=== PATIENT | female | born 1990 | race Two or more races ===

== ENCOUNTER 2018-04-05 20:58 | Emergency (ER) | payer MEDICAID ==
[~2018-04-05] VITALS: Ht 167.6 cm; Wt 63.5 kg
[2018-04-05] MEDS ORDERED: Norco 5mg/325mg tab ORAL ONE (21:30)
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
[2018-04-05] MEDS ORDERED: IBUPROFEN600 MG ORAL (22:17)
[2018-04-05] MEDS ORDERED: HYDROCODON-ACE1 EA15 ORAL (22:17)
[2018-04-05 22:30] VITALS: BP 132/82
--- NOTE | 2018-04-06 09:17 | Diagnostic Imaging Report ---
Indication: Pain, injury Technique: 3 views left foot Comparison: none Findings: There is an oblique fracture of the fourth proximal phalanx. No other acute fractures. No dislocations. The joint spaces are preserved. Impression: Positive for fourth proximal phalangeal fracture This agrees with the findings reported by the emergency room physician in the electronic medical record
== END 2018-04-05 22:30 | disposition home or self-care (01) ==
LOC: EMR 21:34
DX: S92.515A Nondisplaced fracture of proximal phalanx of left lesser toe(s), initial encounter for closed fracture (principal); W22.8XXA Striking against or struck by other objects, initial encounter; Y92.89 Other specified places as the place of occurrence of the external cause
CPT/HCPCS: 73630; 99283; Z7502

== ENCOUNTER 2018-05-03 23:28 | Emergency (ER) | payer MEDICAID ==
[~2018-05-03] VITALS: Ht 167.6 cm; Wt 61.2 kg
[~2018-05-03 23:28] MED LIST: HYDROCODON-ACE1 EA15 ORAL; IBUPROFEN600 MG ORAL
[2018-05-04] MEDS ORDERED: Norco 5mg/325mg tab ORAL ONE
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
[2018-05-04] MEDS ORDERED: IBUPROFEN600 MG ORAL (01:52)
[2018-05-04] MEDS ORDERED: TRAMADOL HCL50 MG ORAL (01:52)
[2018-05-04 02:26] VITALS: BP 125/77
--- NOTE | 2018-05-04 10:16 | Diagnostic Imaging Report ---
Indication: Pain right ankle ankle pain/trauma Comparison: None Findings: 3 views of the right ankle obtained. No acute fracture, malalignment, periostitis, or osteochondral defects are identified. Soft tissues are unremarkable. Impression: Negative examination
== END 2018-05-04 02:26 | disposition home or self-care (01) ==
LOC: EMR 23:59
DX: S93.401A Sprain of unspecified ligament of right ankle, initial encounter (principal); X58.XXXA Exposure to other specified factors, initial encounter; Y92.9 Unspecified place or not applicable
CPT/HCPCS: 99283

== ENCOUNTER 2018-08-25 22:58 | Emergency (ER) | payer MEDICAID ==
[~2018-08-25] VITALS: Ht 165.1 cm; Wt 61.2 kg
[~2018-08-25 22:58] MED LIST changes: +TRAMADOL HCL50 MG ORAL
[2018-08-25] MEDS ORDERED: NKM (23:11)
[2018-08-25 23:13] VITALS: BP 123/82
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
--- NOTE | 2018-08-26 00:26 | NUR ---
ED Nurse Note: X-ray done at bed side.
--- NOTE | 2018-08-26 00:42 | Diagnostic Imaging Report ---
EXAM: XR Face Complete, 3 or More Views CLINICAL HISTORY: TRAUMA TECHNIQUE: Frontal, lateral and oblique views of the face. COMPARISON: No relevant prior studies available. FINDINGS: Bones/joints: Unremarkable. No definite fracture. Sinuses: Unremarkable. No air-fluid levels. Soft tissues: Unremarkable. No radiopaque foreign body. IMPRESSION: 1. Unremarkable study. 2. If there is clinical concern for fracture or trauma, recommend cross- sectional imaging for more sensitive evaluation.
--- NOTE | 2018-08-26 00:42 | Diagnostic Imaging Report ---
EXAM: XR Right Hand Complete, 3 or More Views CLINICAL HISTORY: TRAUMA TECHNIQUE: Frontal, lateral and oblique views of the right hand. COMPARISON: No relevant prior studies available. FINDINGS: Bones/joints: Unremarkable. No acute fracture. No dislocation. Soft tissues: Unremarkable. No radiopaque foreign body. IMPRESSION: 1. No acute abnormality. 2. If there is continued concern, recommend follow-up radiographs in 7- 10 days.
[2018-08-26] MEDS ORDERED: IBUPROFEN600 MG ORAL (00:58)
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
--- NOTE | 2018-08-26 01:10 | NUR ---
Awaken from sleep, has no pain, willing to go home. ACI given along with Rx-Ibuprofen 600mg. Ambulated with steady gait, arm band removed.
== END 2018-08-26 01:10 | disposition home or self-care (01) ==
LOC: EMR 23:30
DX: S00.83XA Contusion of other part of head, initial encounter (principal); S60.221A Contusion of right hand, initial encounter; W22.8XXA Striking against or struck by other objects, initial encounter; Y92.89 Other specified places as the place of occurrence of the external cause; J45.909 Unspecified asthma, uncomplicated
CPT/HCPCS: 70110; 99284

== ENCOUNTER 2019-11-27 16:49 | Emergency (ER) | payer MEDICAID, OTHER ==
[~2019-11-27] VITALS: Ht 165.1 cm; Wt 65.8 kg
[~2019-11-27 16:49] MED LIST changes: +DIPHENHYDRAMINE25 M1 ORAL; +NKM; +PREDNISONE20 MG ORAL
[2019-11-27 17:00] VITALS: BP 118/69
--- NOTE | 2019-11-27 17:00 | NUR ---
ED Nurse Note: Pt from home came in due to right ear pain and bleeding since last night. Pt denies any injury and states she just woke up this morning and noticed laceration behind right ear. VSS, afebrile on triage, pt's on RA. will continue to monitor.
--- NOTE | 2019-11-27 17:30 | NUR ---
ED Nurse Note: ERPA at bedside.
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
[2019-11-27] MEDS ORDERED: BACITRACIN15 GM TOPIC (18:28)
[2019-11-27] MEDS ORDERED: TYLENOL EXTRA500 MG ORAL (18:28)
[2019-11-27 18:50] VITALS: BP 125/76
--- NOTE | 2019-11-27 18:50 | NUR ---
ER DISCHARGE NOTE: Patient is cleared to be discharged per PA, pt is aox4, on room air, with stable vital signs. pt was given dc and prescription instructions, pt was able to verbalize understanding, pt id band removed. pt is able to ambulate with steady gait. pt took all belongings.
== END 2019-11-27 18:50 | disposition home or self-care (01) ==
LOC: EMR 17:15
DX: S00.431A Contusion of right ear, initial encounter (principal); S01.311A Laceration without foreign body of right ear, initial encounter
CPT/HCPCS: 69000; Z7502; 99283

== ENCOUNTER 2020-02-13 18:43 | Emergency (ER) | payer MEDICAID ==
[~2020-02-13] VITALS: Ht 165.1 cm; Wt 72.6 kg
[~2020-02-13 18:43] MED LIST changes: +BACITRACIN15 GM TOPIC; +TYLENOL EXTRA500 MG ORAL
[2020-02-13 19:05] VITALS: BP 128/73
--- NOTE | 2020-02-13 19:15 | Emergency Room Report ---
History of Present Illness General Chief Complaint: Earache Source: Patient Present Illness HPI 29-year-old female with history of recurrences of strep pharyngitis here complaining of 2 weeks of left ear pain and feeling muffled as well as 2 days of left-sided sore throat. Denies any fever and chills, rates the pain 5 out of 10 without radiation. Denies any pus drainage from the ear. Reports that the ear pain started after she went down a water slide she has been applying [id number] eardrops for swimmer's ear's however has not helped her. Denies any hearing loss, vertigo, dizziness, tinnitus. Denies abdominal pain, nausea vomiting, diarrhea. Denies loss of taste and smell. Is sitting comfortably with stable vital signs. Denies . Reports that she often gets yeast infections with antibiotics and is requesting Diflucan. 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 Patient History Past Medical History: see triage record Past Surgical History: none Pertinent Family History: none Last Menstrual Period: 02/08/20 Now: No Immunizations: UTD Reviewed Nursing Documentation: PMH: Agreed; PSxH: Agreed Nursing Documentation-PMH Hx Asthma: Yes Review of Systems All Other Systems: negative except mentioned in HPI Physical Exam Vital Signs Date Time Temp Pulse Resp B/P (MAP) Pulse Ox O2 Delivery O2 Flow Rate FiO2 02/13/20 18:54 98.4 78 19 128/73 (91) 98 Room Air Sp02 EP Interpretation: reviewed, normal General Appearance: no apparent distress, alert, GCS 15, non-toxic Head: normocephalic, atraumatic Eyes: bilateral eye normal inspection, bilateral eye PERRL ENT: tonsillar swelling, pharyngeal erythema, tonsillar exudate, other - Left TM bulging with erythema Neck: full range of motion, supple/symm/no masses, other - Left anterior cervical lymphadenopathy Respiratory: chest non-tender, lungs clear, normal breath sounds, no wheezing, speaking full sentences Cardiovascular #1: regular rate, rhythm, no edema Gastrointestinal: normal bowel sounds, non tender, soft, non-distended, no guarding, no rebound Rectal: deferred Genitourinary: no CVA tenderness Musculoskeletal: back normal, normal range of motion, gait/station normal, non- tender Neurologic: alert, motor strength/tone normal, oriented x3, sensory intact, responsive, speech normal Psychiatric: judgement/insight normal, memory normal, mood/affect normal, no suicidal/homicidal ideation Skin: no rash Lymphatic: adenopathy - Left anterior cervical lymphadenopathy Medical Decision Making PA Attestation All diagnosis and treatment plans were discussed and reviewed by my supervising physician Dr. Hobbs Diagnostic Impression: Primary Impression: Otitis media Additional Impression: Strep pharyngitis ER Course 29-year-old female with history of recurrences of strep pharyngitis here complaining of 2 weeks of left ear pain and feeling muffled as well as 2 days of left-sided sore throat. Denies any fever and chills, rates the pain 5 out of 10 without radiation. Denies any pus drainage from the ear. Reports that the ear pain started after she went down a water slide she has been applying [id number] eardrops for swimmer's ear's however has not helped her. Denies any hearing loss, vertigo, dizziness, tinnitus. Denies abdominal pain, nausea vomiting, diarrhea. Denies loss of taste and smell. Is sitting comfortably with stable vital signs. Denies . Reports that she often gets yeast infections with antibiotics and is requesting Diflucan. Ddx considered but are not limited to: strep pharyngitis, URI, tonsillitis, peritonsillar abscess, influneza , Otitis media, otitis externa Vital signs: are WNL, pt. is afebrile H&PE are most consistent with: Otitis media, strep pharyngitis ORDERS: Cefdinir as patient reported that amoxicillin family irritates her and gives her a rash, Diflucan ED INTERVENTIONS: None required at this time. DISCHARGE: At this time pt. is stable for d/c to home. Will provide printed patient care instructions, and any necessary prescriptions. Care plan and follow up instructions have been discussed with the patient prior to discharge. Patient take medication as directed, follow primary care provider, increase oral hydration, worsening symptoms return to the emergency room Last Vital Signs Date Time Temp Pulse Resp B/P (MAP) Pulse Ox O2 Delivery O2 Flow Rate FiO2 02/13/20 18:54 98.4 78 19 128/73 (91) 98 Room Air Disposition: HOME, SELF-CARE Condition: Stable Scripts Fluconazole (FLUCONAZOLE) 150 Mg Tablet 150 MG ORAL ONCE for 1 Day, #1 TAB 0 Refills Prov: Renee Mercado 02/13/20 Cefdinir (CEFDINIR) 300 Mg Capsule 300 MG PO BID for 7 Days, #14 CAP Prov: Renee Mercado 02/13/20 Patient Instructions: Otitis Media, Adult, [id number], Strep Throat, Easy-to- Read Additional Instructions: Take medication as directed, follow-up with your primary care provider, increase oral hydration, if worsening symptoms return to the emergency room Renee Mercado Feb 13, 2020 19:15
[2020-02-13] MEDS ORDERED: FLUCONAZOLE150 MG ORAL (19:17)
[2020-02-13] MEDS ORDERED: CEFDINIR300 MG PO (19:17)
== END 2020-02-13 19:28 | disposition home or self-care (01) ==
LOC: EMR 19:28
DX: H66.92 Otitis media, unspecified, left ear (principal); J02.0 Streptococcal pharyngitis; J45.909 Unspecified asthma, uncomplicated
CPT/HCPCS: 99282

== ENCOUNTER 2020-02-27 18:24 | Emergency (ER) | payer MEDICAID ==
[~2020-02-27] VITALS: Ht 165.1 cm; Wt 72.6 kg
[~2020-02-27 18:24] MED LIST changes: +CEFDINIR300 MG PO; +FLUCONAZOLE150 MG ORAL
--- NOTE | 2020-02-27 18:26 | NUR ---
ED Nurse Note: PT NOT IN WAITING ROOM WHEN CALLED.
--- NOTE | 2020-02-27 18:42 | NUR ---
ED Nurse Note: Patient walked into ED c/o blistering and rash between fingers, on hands, lips and vaginal area after taking Flagyl. Patient c/o burning and itching in vaginal area.
[2020-02-27 18:47] VITALS: BP 120/81
[2020-02-27] MEDS ORDERED: Lidocaine 1% MPF 10mg/ml 5ml INJ ONE (19:00)
[2020-02-27] MEDS ORDERED: Azithromycin 250mg tab ORAL ONE (19:00)
--- NOTE | 2020-02-27 19:00 | NUR ---
ED Nurse Note: Urine specimen sent to lab
--- NOTE | 2020-02-27 19:04 | NUR ---
HAND-OFF: Report given to Sheela PUCKETT.
--- NOTE | 2020-02-27 19:05 | NUR ---
ED Nurse Note: Pt resting in bed, VSS no ss of distress noted. will continue to monitor.
[2020-02-27 19:46] LABS: APPEARANCE,URINE SLIGHTLY CLOUDY; BILIRUBIN, URINE NEGATIVE (NEGATIVE); COLOR,URINE PALE YELLOW; GLUCOSE, URINE (UA) NEGATIVE (NEGATIVE); KETONES,URINE NEGATIVE (NEGATIVE); LEUKOCYTE ESTERASE ,URINE 2+ (NEGATIVE); NITRITE,URINE NEGATIVE (NEGATIVE); PH,URINE 5 (4.5-8.0); PROTEIN,URINE NEGATIVE (NEGATIVE); UROBILINOGEN,URINE NORMAL MG/DL (0.0-1.0)
--- NOTE | 2020-02-27 19:53 | Emergency Room Report ---
History of Present Illness General Chief Complaint: Allergic Reaction Source: Patient Present Illness HPI 29-year-old female with history of recurrences of bacterial vaginosis and yeast infection here complaining of an allergic reaction after taking fluconazole for possible yeast infection. Complains of sores in mouth and vaginal area rating a painful as well as palm reports that has happened to her before and been seen here for it before. Patient denies any anaphylaxis, shortness of breath, chest pain, fever and chills. Patient was that she sexually active without protection with the same partner. Also complains of malodorous vaginal discharge. Wants to be treated for chlamydia and gonorrhea. Patient also had recurrences of bacterial vaginosis. At first patient thought in the past that she was allergic to Flagyl however later she realized that she is allergic to the pink pill that she takes in order not to get yeast infections after taking antibiotics. 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 Patient History Past Medical History: see triage record Past Surgical History: none Pertinent Family History: none Last Menstrual Period: 02/08/2020 Now: No Immunizations: UTD Reviewed Nursing Documentation: PMH: Agreed; PSxH: Agreed Nursing Documentation-PMH Past Medical History: No Stated History Hx Asthma: Yes Review of Systems All Other Systems: negative except mentioned in HPI Physical Exam Vital Signs Date Time Temp Pulse Resp B/P (MAP) Pulse Ox O2 Delivery O2 Flow Rate FiO2 02/27/20 18:32 97.7 92 18 120/81 (94) 98 Room Air Sp02 EP Interpretation: reviewed, normal General Appearance: no apparent distress, alert, GCS 15, non-toxic Head: normocephalic, atraumatic Eyes: bilateral eye normal inspection, bilateral eye PERRL ENT: hearing grossly normal, normal pharynx, no angioedema, normal voice Neck: full range of motion, supple/symm/no masses Respiratory: chest non-tender, lungs clear, normal breath sounds, speaking full sentences Cardiovascular #1: regular rate, rhythm, no edema Gastrointestinal: normal bowel sounds, non tender, soft, non-distended, no guarding, no rebound Rectal: deferred Genitourinary: no CVA tenderness, ext genitalia/vag normal, other Musculoskeletal: back normal Neurologic: alert, motor strength/tone normal, oriented x3, sensory intact, responsive, speech normal Psychiatric: judgement/insight normal, memory normal, mood/affect normal, no suicidal/homicidal ideation Skin: other - Blisters noted corner of the mouth, few in the vaginal area, and palms of hands Lymphatic: no adenopathy Medical Decision Making PA Attestation All diagnoses and treatment plans were reviewed and discussed with my supervising physician Dr. Ashford Diagnostic Impression: Primary Impression: UTI (urinary tract infection) Additional Impressions: Vaginitis Allergic reaction ER Course 29-year-old female with history of recurrences of bacterial vaginosis and yeast infection here complaining of an allergic reaction after taking fluconazole for possible yeast infection. Complains of sores in mouth and vaginal area rating a painful as well as palm reports that has happened to her before and been seen here for it before. Patient denies any anaphylaxis, shortness of breath, chest pain, fever and chills. Patient was that she sexually active without protection with the same partner. Also complains of malodorous vaginal discharge. Wants to be treated for chlamydia and gonorrhea. Patient also had recurrences of bacterial vaginosis. At first patient thought in the past that she was allergic to Flagyl however later she realized that she is allergic to the pink pill that she takes in order not to get yeast infections after taking antibiotics. Ddx considered but are not limited to: UTI, pyelonephritis, chlamydia, gonorrhea , bacterial vaginosis, yeast infection, anaphylaxis, allergic reaction to medication Vital signs: are WNL, pt. is afebrile H&PE are most consistent with: UTI, vaginitis, allergic reaction to medication ORDERS: UA, urine cx, urine test, Keflex, Flagyl, clotrimazole cream, prednisone, Benadryl ED INTERVENTIONS: Prednisone, Benadryl, Rocephin, azithromycin DISCHARGE: At this time pt. is stable for d/c to home. Will provide printed patient care instructions, and any necessary prescriptions. Care plan and follow up instructions have been discussed with the patient prior to discharge. Patient take medication as directed, follow primary care provider, given list of clinics to get tested for STDs, worsening symptoms return to emergency room Last Vital Signs Date Time Temp Pulse Resp B/P (MAP) Pulse Ox O2 Delivery O2 Flow Rate FiO2 02/27/20 18:47 92 18 Room Air 02/27/20 18:47 97.7 120/81 98 Disposition: HOME, SELF-CARE Condition: Stable Scripts Clotrimazole* (LOTRIMIN*) 15 Gm Cream..g. 1 APPLIC TOPIC TWICE A DAY, #15 GM Prov: Renee Mercado 02/27/20 Cephalexin* (KEFLEX*) 500 Mg Capsule 500 MG ORAL EVERY 12 HOURS for 7 Days, #14 CAP 0 Refills Prov: Renee Mercado 02/27/20 Metronidazole* (FLAGYL*) 500 Mg Tablet 500 MG ORAL BID for 7 Days, #14 TAB Prov: Renee Mercado 02/27/20 Diphenhydramine Hcl* (BENADRYL*) 25 Mg Capsule 25 MG ORAL Q12HR PRN for Itching, #14 CAP Prov: Renee Mercado 02/27/20 Prednisone* (PREDNISONE*) 20 Mg Tablet 40 MG ORAL DAILY for 5 Days, #10 TAB Prov: Renee Mercado 02/27/20 Referrals: NON PHYSICIAN (PCP) Patient Instructions: Drug Allergy, Urinary Tract Infection, [id number], Vaginitis, [id number] Additional Instructions: Take medication as directed, follow primary care provider, if worsening symptom return to emergency room Renee Mercado Feb 27, 2020 19:53
[2020-02-27] MEDS ORDERED: BENADRYL25 MG ORAL (19:56)
[2020-02-27] MEDS ORDERED: METRONIDAZOLE500 MG ORAL (19:56)
[2020-02-27] MEDS ORDERED: CEPHALEXIN500 MG ORAL (19:56)
[2020-02-27] MEDS ORDERED: CLOTRIMAZOLE15 GM TOPIC (19:56)
[2020-02-27] MEDS ORDERED: PREDNISONE20 MG ORAL (19:56)
--- NOTE | 2020-02-27 20:01 | NUR ---
ED Nurse Note: ERPA at bedside
[2020-02-27 20:03] VITALS: BP 127/86
--- NOTE | 2020-02-27 20:03 | NUR ---
ER DISCHARGE NOTE: Patient is cleared to be discharged home per ERMD, pt is aox4, 99% on room air, with stable vital signs. pt was given dc and prescription instructions, pt was able to verbalize understanding, pt id band removed. pt is able to ambulate with steady gait. pt took all belongings.
== END 2020-02-27 20:03 | disposition home or self-care (01) ==
LOC: EMR 18:54
DX: N39.0 Urinary tract infection, site not specified (principal); N76.0 Acute vaginitis; T37.8X5A Adverse effect of other specified systemic anti-infectives and antiparasitics, initial encounter; J45.909 Unspecified asthma, uncomplicated; Y92.9 Unspecified place or not applicable
CPT/HCPCS: 81003; 81025; 87086; 96372; 96374; J0696; J7512; Q0144; Z7502; 99284